=== PATIENT | male | born 1970 | race Caucasian/White ===

== ENCOUNTER → 2023-01-21 13:59 | Outpatient (CLI) | payer OTHER, SELFPAY ==
--- NOTE | 2023-01-21 14:04 | DI.RAD.S_ITS ---
PROCEDURE: XR CERVICAL SPINE 2V OR 3V INDICATIONS: left neck pain and pop, C3-5 fusion hx TECHNIQUE: 3 view(s) of the cervical spine were acquired. COMPARISON: None. FINDINGS: Bones: No fractures or dislocations to the C7 level. Straightening of normal cervical lordosis. Grade 1 retrolisthesis of C3 on C4. Postsurgical changes from C4 through C6 ACDF. Degenerative changes of the cervical spine with osteophyte formation, facet and uncovertebral arthropathy and disc height loss. The lateral masses of C1 appear intact on the odontoid view. No suspicious bony lesions. Soft tissues: No prevertebral soft tissue swelling. IMPRESSION: Postsurgical changes from C4 through C6 ACDF. Multilevel degenerative changes of the cervical spine as described above. Grade 1 retrolisthesis of C3 on C4. Dictated by: Hayden Barrera M.D. on 01/21/2023 at 15:30 Approved by: Hayden Barrera M.D. on 01/21/2023 at 15:32
== END ==
PROVIDERS: PCP Pediatrics; Referring Provider Pediatrics; Visit Provider Pediatrics
DX: M54.2 Cervicalgia (principal); Z98.1 Arthrodesis status; M47.812 Spondylosis without myelopathy or radiculopathy, cervical region; M43.12 Spondylolisthesis, cervical region
CPT/HCPCS: 72040

== ENCOUNTER → 2023-02-02 08:01 | Outpatient (CLI) | payer OTHER, SELFPAY ==
[2023-02-02 08:37] LABS: Add Manual Diff / Slide Review NO; Basophils Absolute Auto 0 /uL (0-100); Basophils Percent Auto 0.6 % (0-2); Eosinophils Absolute Auto 400 /uL (0-450); Eosinophils Percent Auto 7.5 % (2-4); Hematocrit 48.4 % (41-53); Hemoglobin 16.7 g/dL (13.5-17.5); Lymphocytes Absolute Auto 800 /uL (1100-4500); Lymphocytes Percent Auto 16.5 % (25-40); Mean Corpuscular HGB Conc 34.6 % (30-36); Mean Corpuscular Hemoglobin 31.4 PG (26-34); Mean Corpuscular Volume 90.8 fL (80-100); Monocytes Absolute Auto 600 /uL (0-900); Monocytes Percent Auto 11.8 % (3-14); Neutrophils Absolute Auto 3100 /uL (1500-7000); Neutrophils Percent Auto 63.6 % (50-75); Platelet Count 202 X10^3/uL (150-400); Red Blood Cell Count 5.33 X10^6/uL (4.5-5.9); Red Cell Distribution Width 13.6 % (11.6-14.8); White Blood Cell Count 4.8 X10^3/uL (4.5-11.0)
[2023-02-02 09:11] LABS: BUN Creatinine Ratio 16.7 (6-22); Blood Urea Nitrogen 17 mg/dL (9-20); Calcium 9.1 mg/dL (8.4-10.2); Carbon Dioxide 33 mmol/L (22-32); Chloride 101 mmol/L (98-107); Cholesterol 169 mg/dL (140-199); Estimated Glomerular Filt Rate > 60 mL/min (>60); Glucose 96 mg/dL (70-100); HDL Cholesterol 34 mg/dL (40-60); HEMOLYSIS < 15 (0-50); LDL Cholesterol Calculated 117 mg/dL (<100); Potassium 4.3 mmol/L (3.4-5.1); Sodium 138 mmol/L (137-145); Triglycerides 90 mg/dL (35-150)
== END ==
PROVIDERS: PCP Pediatrics; Referring Provider Pediatrics; Visit Provider Pediatrics
DX: Z00.00 Encounter for general adult medical examination without abnormal findings (principal)
CPT/HCPCS: 36415; 80048; 80061; 85025

== ENCOUNTER → 2023-02-23 15:05 | Outpatient (CLI) | payer OTHER, SELFPAY ==
--- NOTE | 2023-02-23 15:06 | DI.MRI.S_ITS ---
PROCEDURE: MR CERVICAL SPINE WO CON INDICATIONS: hx C3-5 fusion, pop and pain in neck TECHNIQUE: Noncontrast sagittal T1 spin echo and T2 fast spin echo, sagittal STIR, foraminal oblique sagittal T2 fast spin echo, and axial gradient echo or T2 fast spin echo through the cervical spine. COMPARISON: [facility], CR, XR CERVICAL SPINE 2V OR 3V, 01/21/2023, 14:25. [facility], MR, C-SPINE WITHOUT CONTRAST, 08/13/2008, 17:06. FINDINGS: Image quality: Excellent. Alignment and Curvature: Grade 1 retrolisthesis of C3 on C4. Grade 1 anterolisthesis of C6 on C7. Bone Marrow: C4 through C6 ACDF. Degenerative endplate changes at C3-C4. Spinal Cord: Visualized spinal cord has normal size and signal. No cerebellar tonsillar herniation. Paraspinous Soft Tissues: No paravertebral masses. Prevertebral soft tissues are normal in thickness. C2-C3: Minimal right paracentral disc osteophyte complex. No central canal stenosis. Facet and uncovertebral arthropathy. No neural foraminal stenosis. C3-C4: Posterior disc osteophyte complex abutting the ventral cord. Moderate central canal stenosis. Facet and uncovertebral arthropathy. [id number] bilateral neural foraminal stenosis. C4-C5: No central canal stenosis. No neural foraminal stenosis. C5-C6: No central canal stenosis. Facet and uncovertebral arthropathy. Mild right neural foraminal stenosis. No left neural foraminal stenosis. C6-C7: No central canal stenosis. Facet and uncovertebral arthropathy. No neural foraminal stenosis. C7-T1: No central canal or neural foraminal stenosis. IMPRESSION: 1. Multilevel degenerative changes of cervical spine, status post C4 through C6 ACDF. 2. Retrolisthesis and posterior disc osteophyte complex at C3-C4 resulting in moderate central canal stenosis with effacement of the CSF space ventrally and dorsally. No cord signal abnormality. The remainder of the cervical spine demonstrates no central canal stenosis. 3. [id number] bilateral neural foraminal stenosis at C3-C4. Other levels of mild neural foraminal stenosis as above. Dictated by: Hayden Barrera M.D. on 02/23/2023 at 17:18 Approved by: Hayden Barrera M.D. on 02/23/2023 at 17:23
== END ==
PROVIDERS: PCP Pediatrics; Referring Provider Pediatrics; Visit Provider Pediatrics
DX: M47.812 Spondylosis without myelopathy or radiculopathy, cervical region (principal); M48.02 Spinal stenosis, cervical region; M54.2 Cervicalgia; Z98.1 Arthrodesis status
CPT/HCPCS: 72141

== ENCOUNTER → 2023-09-29 15:40 | Outpatient (CLI) | payer OTHER, SELFPAY ==
--- NOTE | 2023-09-29 15:42 | DI.MRI.S_ITS ---
PROCEDURE: MR CERVICAL SPINE WO CON INDICATIONS: Neck pain, prior cervical fusion. TECHNIQUE: Noncontrast sagittal T1 spin echo and T2 fast spin echo, sagittal STIR, foraminal oblique sagittal T2 fast spin echo, and axial gradient echo or T2 fast spin echo through the cervical spine. COMPARISON: [facility], CR, XR CERVICAL SPINE 2V OR 3V, 01/21/2023, 14:25. [facility], MR, C-SPINE WITHOUT CONTRAST, 08/13/2008, 17:06. [facility], MR, MR THORACIC SPINE WO CON, 09/29/2023, 15:50. [facility], MR, MR CERVICAL SPINE WO CON, 02/23/2023, 15:12. FINDINGS: Image quality: There is artifact associated with the metallic hardware. Alignment and Curvature: There is minimal anterolisthesis at the C2-C3. There is mild retrolisthesis seen at C3-C4. Bone Marrow: Marrow demonstrates normal overall signal. Spinal Cord: Visualized spinal cord has normal size and signal. No cerebellar tonsillar herniation. Paraspinous Soft Tissues: No paravertebral masses. Prevertebral soft tissues are normal in thickness. Anterior fixation hardware can be seen C4 through C6. Disc spacers are seen at C4-C5 and at C5-C6. The fusion hardware is better seen on the prior plain film. C2-C3: The disc height and disk signal are relatively well-preserved. A mild degree of generalized disc osteophyte complex is seen. There is mild right-sided and at least moderate left-sided facet hypertrophy. There is moderate to severe left-sided and no right-sided neural foraminal narrowing. No central canal narrowing is seen. When comparison is made with the prior images, these findings are similar. C3-C4: Mild loss of disc height is seen. Loss of disc signal is seen. Reactive marrow endplate changes are seen, which are hyperintense on T1-weighted and T2-weighted imaging and most consistent with fatty metaplasia (Modic type II changes). Moderate disc bulge is seen, which is eccentric to the right side. Moderate facet joint hypertrophy is seen. Moderate bilateral neural foraminal narrowing is seen. Mild to moderate central canal narrowing is seen. No significant change from the prior. C4-C5: Postoperative change can be seen at this level. No significant neural foraminal or central canal narrowing can be seen. Stable from the prior study. C5-C6: There is postoperative change at this level. There is mild right-sided and no left-sided neural foraminal narrowing. No central canal narrowing is seen. No significant change from the prior. C6-C7: Mild loss of disc height is seen. Loss of disc signal is seen. A mild degree of generalized disc osteophyte complex is seen. Mild facet joint hypertrophy is seen. There is mild left-sided and no right-sided neural foraminal narrowing. No central canal narrowing is seen. No significant change from the prior. C7-T1: Level within normal limits. IMPRESSION: Multiple levels of cervical spine degenerative change can be seen, which are not significantly progressed compared to the prior MRI. Anterior fixation hardware can again be seen C4 through C6. Dictated by: Rick Beth M.D. on 09/30/2023 at 13:48 Approved by: Rick Beth M.D. on 09/30/2023 at 13:59
--- NOTE | 2023-09-29 15:42 | DI.MRI.S_ITS ---
PROCEDURE: MR THORACIC SPINE WO CON INDICATIONS: Neck pain and upper back pain within this between shoulder blades for 3 months TECHNIQUE: Noncontrast sagittal T1 spine echo and T2 fast spin echo, sagittal STIR, and T2 fast spin echo through the thoracic spine. COMPARISON: [facility], MR, MR CERVICAL SPINE WO CON, 09/29/2023, 15:50. FINDINGS: Image quality: Excellent. Alignment and Curvature: There is normal bony alignment. Bone Marrow: Marrow is of normal overall signal. No acute vertebral body compression fractures. Spinal Cord: Visualized spinal cord is normal in size and signal. Paraspinous Soft Tissues: No paravertebral masses. Miscellaneous: Lower cervical spine degenerative changes are partially seen. Scattered mild degenerative changes are seen, with a few levels of mild disc space narrowing, with associated endplate irregularity. At the T10-T11 level, there is hypertrophy of the posterior elements seen on the left, as on series 11, image 19 and on series 7 image 8. Mild central canal narrowing is seen, with minimal mass effect upon the posterior left spinal cord. There is moderate left-sided neural foraminal narrowing at this level. A few levels of [id number] neural foraminal narrowing can be seen elsewhere within the mid to lower thoracic spine. No additional area of significant central canal narrowing can be seen. IMPRESSION: Focal T10-T11 degenerative change seen. Dictated by: Rick Beth M.D. on 09/30/2023 at 13:45 Approved by: Rick Beth M.D. on 09/30/2023 at 13:48
== END ==
PROVIDERS: PCP Family Medicine; Referring Provider Family Medicine; Visit Provider Family Medicine
DX: M47.812 Spondylosis without myelopathy or radiculopathy, cervical region (principal); M47.814 Spondylosis without myelopathy or radiculopathy, thoracic region; M48.9 Spondylopathy, unspecified; M54.2 Cervicalgia; M54.9 Dorsalgia, unspecified; R29.898 Other symptoms and signs involving the musculoskeletal system; R20.0 Anesthesia of skin; R20.2 Paresthesia of skin; Z98.1 Arthrodesis status; Z98.890 Other specified postprocedural states
CPT/HCPCS: 72141; 72146

== ENCOUNTER → 2023-10-29 15:03 | Outpatient (CLI) | payer OTHER, SELFPAY ==
--- NOTE | 2023-10-29 | DI.MRI.S_ITS ---
PROCEDURE: MR SHOULDER RT WO CON INDICATIONS: Pain in right shoulder TECHNIQUE: Noncontrast oblique coronal T2 fast spin echo with fat saturation, oblique sagittal T1 spin echo and T2 fast spin echo with fat saturation, axial T1 spin echo and T2 fast spin echo with fat saturation through the shoulder. COMPARISON: [facility], MR, UP EXT WITH, 08/18/2010, 14:02. [facility], CR, XR SHOULDER 2+ VIEWS RIGHT, 10/17/2023, 13:16. FINDINGS: Image quality: Excellent. Rotator cuff: Postsurgical changes are seen from rotator cuff tendon repair. There is a full-thickness longitudinal defect at the posterior supraspinatus/anterior infraspinatus tendons measuring approximately 10 mm in anterior-posterior dimension. The teres minor tendon is intact. There is high-grade partial articular sided intrasubstance tearing of the subscapularis tendon at the superior insertion. No significant rotator cuff muscle atrophy is seen. Bones and bursae: Surgical anchors are seen in the greater tuberosity with associated metal artifact. No acute trabecular bone injury or fracture. There is partial-thickness cartilage irregularity in the glenohumeral joint with marginal osteophyte formation. Postsurgical widening of the acromioclavicular joint is seen without recurrent narrowing of the supraspinatus outlet. A small amount of fluid in the subacromial/subdeltoid bursa communicates with a small glenohumeral joint effusion. There is moderate synovial hypertrophy in the axillary recess. Capsule and soft tissues: Diffuse labral degeneration. The proximal biceps long head tendon is not visualized. There appears to be a tenodesis anchor in the proximal humeral shaft at the margins of the field of view of this exam. There is partial effacement of the fat in the rotator interval. Glenohumeral ligaments are grossly intact. IMPRESSION: 1. Postsurgical changes from rotator cuff tendon repair. A full-thickness defect is seen at the posterior supraspinatus/anterior infraspinatus tendons measuring 10 mm in anterior-posterior dimension and that is suspicious for recurrent full-thickness/partial width tearing. 2. High-grade partial articular sided tearing of the subscapularis tendon at the superior insertion superimposed on chronic tendinosis. 3. Status post biceps long head tenodesis. 4. [id number] glenohumeral osteoarthrosis. Small glenohumeral effusion is seen with moderate synovial hypertrophy. 5. Postsurgical widening of the acromioclavicular joint. Subacromial/subdeltoid bursal fluid communicates with the glenohumeral joint space. Approved by: Chuck Light M.D. on 10/31/2023 at 11:02
== END ==
LOC: MRI 15:05
PROVIDERS: PCP Family Medicine; Referring Provider Orthopaedic Surgery; Visit Provider Orthopaedic Surgery
DX: M75.111 Incomplete rotator cuff tear or rupture of right shoulder, not specified as traumatic (principal); M19.011 Primary osteoarthritis, right shoulder; M25.511 Pain in right shoulder; M25.411 Effusion, right shoulder
CPT/HCPCS: 73221